=== PATIENT | male | born 1995 | race Caucasian/White ===

== ENCOUNTER 2016-07-22 15:22 | Emergency (ER) | payer OTHER ==
[~2016-07-22] VITALS: Ht 182.9 cm; Wt 85.0 kg
[~2016-07-22 15:22] MED LIST: Z.0.NO CURRENT MEDS
[2016-07-22 15:29] VITALS: BP 124/75; PULSE 115; RESP 18; TEMP 98.4; O2SAT 100
[2016-07-22] MEDS ORDERED: diphenhydrAMINE HCL 50 MG/ML VIAL IV PUSH ONE (16:45)
[2016-07-22] MEDS ORDERED: diphenhydrAMINE HCL 50 MG/ML VIAL IM ONE (16:45)
[2016-07-22] MEDS ORDERED: methylPREDNISolone SOD SUCC 125 MG/2 ML VIAL IM ONE (16:45)
--- NOTE | 2016-07-22 17:30 | PD ---
HPI Chief Complaint: Skin Problem Time Seen by Provider: 16:25 Travel History International Travel<30 days: No Contact w/Intl Traveler<30days: No Traveled to known affect area: No History of Present Illness HPI Patient is a 20-year-old male who presents emergency for evaluation of a rash. Rash started approximately one week ago, patient states it's itchy. He denies any new soaps, lotions, detergents. He denies any recent outdoor activities or exposure. He denies any wheezing, fever, chills. He denies any history of the same. [facility] Past Medical History Medical History: Denies Significant Hx Immunizations Current: Yes Social History Alcohol Use: No Tobacco Use: No Substance Use: No Allergies-Medications (Allergen,Severity, Reaction): Coded Allergies: No Known Allergies (Unverified , 07/22/16) Reported Meds & Prescriptions Reported Meds & Active Scripts Active No Active Prescriptions or Reported Medications Review of Systems Except as stated in HPI: all other systems reviewed are Neg Skin: Positive Rash, Positive Itching Physical Exam Narrative GENERAL: Well-nourished, well-developed patient. SKIN: Warm and dry. Scattered maculopapular lesions to arms, chest, legs, abdomen and back. No induration, crusting or exudates noted. Rash is not confluent. HEAD: Normocephalic. EYES: No scleral icterus. No injection or drainage. NECK: Supple, trachea midline. No JVD or lymphadenopathy. CARDIOVASCULAR: Regular rate and rhythm without murmurs, gallops, or rubs. RESPIRATORY: Breath sounds equal bilaterally. No accessory muscle use. GASTROINTESTINAL: Abdomen soft, non-tender, nondistended. MUSCULOSKELETAL: No cyanosis, or edema. BACK: Nontender without obvious deformity. No CVA tenderness. Data Data Last Documented VS Vital Signs Date Time Temp Pulse Resp B/P Pulse Ox O2 Delivery O2 Flow Rate FiO2 07/22/16 15:29 98.4 115 18 124/75 100 Orders Diphenhydramine Inj (Benadryl Inj) (07/22/16 16:45) Methylprednisolone So Succ Inj (Solumedr (07/22/16 16:45) Diphenhydramine Inj (Benadryl Inj) (07/22/16 16:45) MDM Medical Decision Making Medical Screen Exam Complete: Yes Emergency Medical Condition: Yes Interpretation(s) Vital Signs Date Time Temp Pulse Resp B/P Pulse Ox O2 Delivery O2 Flow Rate FiO2 07/22/16 15:29 98.4 115 18 124/75 100 Differential Diagnosis Contact dermatitis versus allergic reaction versus eczema versus other Narrative Course Patient is a 20-year-old male who presented to emergency department for evaluation of a rash. Patient's vital signs are stable, his heart rate was initially assessed at 115, upon reassessment he was in the 80s. He reports feeling nervous as well as riding his bike prior to arrival. Patient was given Benadryl and Solu-Medrol in the emergency department. Will reevaluate. 1800 -rash is less erythematous after medication administration. He reports improvement in the itching. Patient be discharged on a short course of oral steroids. He is encouraged to follow-up with a welder tool and die if symptoms do not improve. Additionally patient can return to emergency department for reevaluation. Patient verbalized understanding of these instructions. Patient is stable for discharge. Diagnosis Primary Impression: Rash Additional Impression: Urticaria Referrals: Ultrasound Manager Primary Care Physician Patient Instructions: Acute Rash (ED), General Instructions Additional Instructions: Take medications as directed Follow-up with your primary doctor or with a welder tool and die for further evaluation and management Return to emergency department for any new or worsening symptoms You may take [id number] Benadryl as needed and as directed for itching Med/Other Pt SpecificInfo: Prescription(s) given Scripts Ranitidine 150 Mg [id number] Mg PO BID #20 TAB Ref 0 Prov:Shawna Shoemaker 07/22/16 Cetirizine 10 Mg Tab10 Mg PO HS 30 Days Ref 0 Prov:Shawna Shoemaker 07/22/16 Prednisone 50 Mg Tab50 Mg PO DAILY #5 TAB Ref 0 Prov:Shawna Shoemaker 07/22/16 Disposition: 01 DISCHARGE HOME Condition: Stable Shawna Shoemaker Jul 22, 2016 17:30
[2016-07-22] MEDS ORDERED: PRED50 PO (18:10)
[2016-07-22] MEDS ORDERED: RANI150T PO (18:10)
[2016-07-22] MEDS ORDERED: CETI10 PO (18:10)
== END 2016-07-22 18:44 | disposition home or self-care (01) ==
LOC: PHED 15:22 → PHEFT 18:44
DX: R21 Rash and other nonspecific skin eruption (principal); L50.9 Urticaria, unspecified
CPT/HCPCS: 96372; 99282; J1200; J2930